=== PATIENT | female | born 1980 | race Caucasian/White ===

== ENCOUNTER 2017-10-11 20:33 | Emergency (ER) | payer OTHER ==
[2017-10-11 23:48] LABS: ADD MAN DIFF? NO
[2017-10-11 23:54] LABS: BASOPHILS % 0.6 % (0.0-2.0); EOSINOPHILS # 0.3 10^3/ul (0.0-0.5); EOSINOPHILS % 3.6 % (0.0-7.0); LYMPHOCYTES # 1.9 10^3/ul (0.8-2.9); LYMPHOCYTES % 27.2 % (15.0-51.0); MEAN CORPUSCULAR HEMOGLOBIN 27.1 pg (29.0-33.0); MEAN CORPUSCULAR HGB CONC 34.1 g/dl (32.0-37.0); MEAN CORPUSCULAR VOLUME 79.3 fl (82.0-101.0); MEAN PLATELET VOLUME 9.7 fl (7.4-10.4); MONOCYTE # 0.6 10^3/ul (0.3-0.9); MONOCYTES % 9.1 % (0.0-11.0); NEUTROPHIL # 4.1 10^3/ul (1.6-7.5); NEUTROPHILS % 59.2 % (39.0-77.0); PLATELET COUNT 320 10^3/UL (140-415); RED BLOOD COUNT 5.17 10^6/ul (4.20-5.40); RED CELL DISTRIBUTION WIDTH 14.3 % (11.5-14.5)
[2017-10-11 23:54] LABS: WHITE BLOOD COUNT 6.9 10^3/ul (4.8-10.8)
[2017-10-12 00:11] LABS: ADD UMIC YES; UR ASCORBIC ACID NEGATIVE (NEGATIVE); UR BILIRUBIN (Dip) NEGATIVE (NEGATIVE); UR BLOOD (Dip) 1+ mg/dL (NEGATIVE); UR CLARITY CLEAR (CLEAR); UR COLOR YELLOW (YELLOW); UR GLUCOSE (Dip) NEGATIVE (NEGATIVE); UR KETONES (Dip) NEGATIVE (NEGATIVE); UR LEUKOCYTE ESTERASE (Dip) 1+ Leu/ul (NEGATIVE); UR NITRITE (Dip) NEGATIVE (NEGATIVE); UR RBC 1 /HPF (0-5); UR SPECIFIC GRAVITY (Dip) 1.016 (1.003-1.030); UR SQUAMOUS EPITHELIAL CELL FEW /HPF (FEW); UR TOTAL PROTEIN (Dip) NEGATIVE (NEGATIVE); UR UROBILINOGEN (Dip) NEGATIVE (NEGATIVE); UR WBC 2 /HPF (0-5)
[2017-10-12 00:12] LABS: ALANINE AMINOTRANSFERASE 73 IU/L (13-69); ALBUMIN 4.4 g/dl (3.3-4.9); ALBUMIN/GLOBULIN RATIO 0.97; ALKALINE PHOSPHATASE 132 IU/L (42-121); ANION GAP 20 (8-16); ASPARTATE AMINO TRANSFERASE 55 IU/L (15-46); BILIRUBIN,INDIRECT 0.2 mg/dl (0-1.1); BILIRUBIN,TOTAL 0.2 mg/dl (0.2-1.3); BLOOD UREA NITROGEN 12 mg/dl (7-20); CALCIUM 10.6 mg/dl (8.4-10.2); CARBON DIOXIDE 24 mmol/L (21-31); CHLORIDE 103 mmol/L (97-110); CREATININE 0.89 mg/dl (0.44-1.00); GLUCOSE 105 mg/dl (70-220); LIPASE 137 U/L (23-300); POTASSIUM 3.7 mmol/L (3.5-5.1); SODIUM 143 mmol/L (135-144); TOTAL PROTEIN 8.9 g/dl (6.1-8.1)
== END 2017-10-12 03:18 | disposition home or self-care (01) ==
LOC: FTE 10-12 03:18
DX: O23.41 Unspecified infection of urinary tract in pregnancy, first trimester (principal); O99.89 Other specified diseases and conditions complicating pregnancy, childbirth and the puerperium; J45.909 Unspecified asthma, uncomplicated; R05 Cough; O99.511 Diseases of the respiratory system complicating pregnancy, first trimester; Z3A.01 Less than 8 weeks gestation of pregnancy
CPT/HCPCS: 36415; 76801; 76817; 80053; 81001; 83690; 84702; 85025; 86900; 86901; 99284-25

== ENCOUNTER 2017-10-25 20:14 | Emergency (ER) | payer SELFPAY, OTHER | END 2017-10-26 01:27 | disposition left against medical advice (07) | LOC: FTE 20:14 → E/R 10-26 01:27 | DX: Z53.21 Procedure and treatment not carried out due to patient leaving prior to being seen by health care provider (principal) ==

== ENCOUNTER 2017-12-01 19:44 | Emergency (ER) | payer SELFPAY, MEDICAID | END 2017-12-02 01:35 | disposition left against medical advice (07) | LOC: FTE 19:44 | DX: Z53.21 Procedure and treatment not carried out due to patient leaving prior to being seen by health care provider (principal) ==

== ENCOUNTER 2018-02-26 22:28 | Inpatient (IN) | payer OTHER ==
[2018-02-26 23:19] LABS: ADD UMIC YES; UR ASCORBIC ACID NEGATIVE (NEGATIVE); UR BACTERIA FEW /HPF (NONE SEEN); UR BILIRUBIN (Dip) NEGATIVE (NEGATIVE); UR BLOOD (Dip) NEGATIVE (NEGATIVE); UR CLARITY CLOUDY (CLEAR); UR COLOR YELLOW (YELLOW); UR GLUCOSE (Dip) NEGATIVE (NEGATIVE); UR KETONES (Dip) NEGATIVE (NEGATIVE); UR LEUKOCYTE ESTERASE (Dip) 3+ Leu/ul (NEGATIVE); UR NITRITE (Dip) NEGATIVE (NEGATIVE); UR RBC 27 /HPF (0-5); UR SQUAMOUS EPITHELIAL CELL MANY /HPF (FEW); UR TOTAL PROTEIN (Dip) NEGATIVE (NEGATIVE); UR UROBILINOGEN (Dip) NEGATIVE (NEGATIVE); UR WBC 9 /HPF (0-5)
[2018-02-27 00:09] LABS: ADD MAN DIFF? NO
[2018-02-27 00:15] LABS: BASOPHILS % 0.4 % (0.0-2.0); EOSINOPHILS # 0.2 10^3/ul (0.0-0.5); EOSINOPHILS % 2.9 % (0.0-7.0); HEMATOCRIT 33.8 % (37.0-47.0); HEMOGLOBIN 11.4 g/dl (12.0-16.0); LYMPHOCYTES # 1.6 10^3/ul (0.8-2.9); LYMPHOCYTES % 19.6 % (15.0-51.0); MEAN CORPUSCULAR HEMOGLOBIN 28.9 pg (29.0-33.0); MEAN CORPUSCULAR HGB CONC 33.7 g/dl (32.0-37.0); MEAN CORPUSCULAR VOLUME 85.8 fl (82.0-101.0); MEAN PLATELET VOLUME 10.3 fl (7.4-10.4); MONOCYTE # 0.6 10^3/ul (0.3-0.9); MONOCYTES % 7.6 % (0.0-11.0); NEUTROPHIL # 5.6 10^3/ul (1.6-7.5); NEUTROPHILS % 67.7 % (39.0-77.0); PLATELET COUNT 266 10^3/UL (140-415); RED BLOOD COUNT 3.94 10^6/ul (4.20-5.40); RED CELL DISTRIBUTION WIDTH 14.6 % (11.5-14.5)
[2018-02-27 00:15] LABS: WHITE BLOOD COUNT 8.3 10^3/ul (4.8-10.8)
[2018-02-27 00:34] LABS: ALANINE AMINOTRANSFERASE 30 IU/L (13-69); ALBUMIN 3.2 g/dl (3.3-4.9); ALBUMIN/GLOBULIN RATIO 0.91; ALKALINE PHOSPHATASE 102 IU/L (42-121); ANION GAP 11 (8-16); ASPARTATE AMINO TRANSFERASE 19 IU/L (15-46); BLOOD UREA NITROGEN 8 mg/dl (7-20); CALCIUM 9.9 mg/dl (8.4-10.2); CARBON DIOXIDE 26 mmol/L (21-31); CHLORIDE 108 mmol/L (97-110); GLUCOSE 116 mg/dl (70-220); POTASSIUM 4.1 mmol/L (3.5-5.1); SODIUM 141 mmol/L (135-144); TOTAL PROTEIN 6.7 g/dl (6.1-8.1)
[2018-02-27] MEDS: LACTATED RINGER'S 1,000 ML IV ×3 (02:32→18:31)
[2018-02-27] MEDS: NITROFURANTOIN (SR) 100 MG CAP PO ×2 (03:37→09:21)
[2018-02-27] MEDS: ACETAMINOPHEN 500 MG TAB PO ×2 (03:38→09:21)
[2018-02-27] MEDS: ACCU-CHEK XX ×4 (09:20→20:05)
[2018-02-27] MEDS: BUTORPHANOL 2 MG INJ IV (12:03)
[2018-02-27] MEDS ORDERED: GENTAMICIN IV PER PHARMACY XX (12:30)
[2018-02-27] MEDS: PRENATAL VITAMIN PO (13:42)
[2018-02-27] MEDS: morphine 2 MG INJ IV (13:42)
[2018-02-27] MEDS: FERROUS SULFATE (EC) 325 MG TAB PO (13:42)
[2018-02-27] MEDS: GENTAMICIN 120 MG/NS (PMX) 100 ML IVPB (14:02)
[2018-02-27] MEDS: GENTAMICIN 120 MG in SOD CHLORIDE 0.9% 100 ML IVPB (23:19)
[2018-02-28] MEDS: DIPHENHYDRAMINE 50 MG CAP PO ×2 (00:44→23:53)
[2018-02-28] MEDS: HYDROmorphONE 2 MG TAB PO ×6 (00:45→23:53)
[2018-02-28] MEDS: LACTATED RINGER'S 1,000 ML IV ×3 (03:46→20:07)
[2018-02-28] MEDS: GENTAMICIN 120 MG in SOD CHLORIDE 0.9% 100 ML IVPB (05:54)
[2018-02-28 06:22] LABS: GENTAMICIN,TROUGH 1.7 ug/ml (1.0-2.0)
[2018-02-28] MEDS: ACCU-CHEK XX ×4 (08:00→20:56)
[2018-02-28] MEDS: PRENATAL VITAMIN PO (08:42)
[2018-02-28] MEDS: FERROUS SULFATE (EC) 325 MG TAB PO (08:42)
[2018-02-28] MEDS: GENTAMICIN 80 MG/NS (PMX) 50 ML IVPB ×2 (15:48→23:53)
[2018-02-28] MEDS: ACETAMINOPHEN 500 MG TAB PO (19:54)
[2018-03-01] MEDS: LACTATED RINGER'S 1,000 ML IV ×4 (01:55→22:16)
[2018-03-01] MEDS: GENTAMICIN 80 MG/NS (PMX) 50 ML IVPB ×2 (07:58→16:02)
[2018-03-01] MEDS: ACCU-CHEK XX ×4 (08:10→20:49)
[2018-03-01] MEDS: PRENATAL VITAMIN PO (08:37)
[2018-03-01] MEDS: FERROUS SULFATE (EC) 325 MG TAB PO (08:37)
[2018-03-01] MEDS: HYDROmorphONE 2 MG TAB PO ×8 (08:46→23:48)
[2018-03-01 23:35] LABS: GENTAMICIN,TROUGH 1.5 ug/ml (1.0-2.0)
[2018-03-01] MEDS ORDERED: GENTAMICIN 80 MG/NS (PMX) 50 ML IVPB (23:45)
[2018-03-01] MEDS: DIPHENHYDRAMINE 50 MG CAP PO (23:48)
[2018-03-02] MEDS: GENTAMICIN 80 MG/NS (PMX) 50 ML IVPB ×3 (00:10→15:46)
[2018-03-02] MEDS: LACTATED RINGER'S 1,000 ML IV ×2 (06:58→15:10)
[2018-03-02] MEDS: ACCU-CHEK XX ×3 (07:57→14:29)
[2018-03-02] MEDS: PRENATAL VITAMIN PO (08:45)
[2018-03-02] MEDS: FERROUS SULFATE (EC) 325 MG TAB PO (08:45)
[2018-03-02 09:31] LABS: CREATININE 0.58 mg/dl (0.44-1.00)
[2018-03-02 09:31] LABS: BLOOD UREA NITROGEN 7 mg/dl (7-20)
== END 2018-03-02 18:32 | disposition home or self-care (01) | DRG 781 ==
LOC: OBT 22:28 → L-D 22:29 → PP1 02-27 03:02
DX: O99.89 Other specified diseases and conditions complicating pregnancy, childbirth and the puerperium (principal); N13.30 Unspecified hydronephrosis; Z3A.23 23 weeks gestation of pregnancy; O24.419 Gestational diabetes mellitus in pregnancy, unspecified control; J11.1 Influenza due to unidentified influenza virus with other respiratory manifestations
CPT/HCPCS: 74183; 76775; 76815; 76817; 80053; 80170; 81001; 82565; 82962; 84520; 85025; 86850; 86900; 86901; 87040; 87086

== ENCOUNTER 2018-05-11 20:53 | Outpatient (CLI) | payer OTHER ==
[2018-05-11 22:28] LABS: ADD UMIC YES; UR ASCORBIC ACID NEGATIVE (NEGATIVE); UR BACTERIA FEW /HPF (NONE SEEN); UR BILIRUBIN (Dip) NEGATIVE (NEGATIVE); UR BLOOD (Dip) NEGATIVE (NEGATIVE); UR CLARITY SLIGHTLY CLOUDY (CLEAR); UR COLOR YELLOW (YELLOW); UR GLUCOSE (Dip) NEGATIVE (NEGATIVE); UR KETONES (Dip) NEGATIVE (NEGATIVE); UR LEUKOCYTE ESTERASE (Dip) 1+ Leu/ul (NEGATIVE); UR NITRITE (Dip) NEGATIVE (NEGATIVE); UR RBC 3 /HPF (0-5); UR SPECIFIC GRAVITY (Dip) 1.017 (1.003-1.030); UR SQUAMOUS EPITHELIAL CELL FEW /HPF (FEW); UR TOTAL PROTEIN (Dip) NEGATIVE (NEGATIVE); UR UROBILINOGEN (Dip) NEGATIVE (NEGATIVE); UR WBC 6 /HPF (0-5)
[2018-05-11] MEDS: LACTATED RINGER'S 1,000 ML IV (22:28)
[2018-05-11] MEDS ORDERED: LACTATED RINGER'S 1,000 ML IV* (22:30)
== END 2018-05-11 23:31 | disposition home or self-care (01) ==
LOC: OBT 20:53 → L-D 20:53
DX: O62.9 Abnormality of forces of labor, unspecified (principal); Z3A.34 34 weeks gestation of pregnancy
CPT/HCPCS: 36415; 76817; 81001; 87086; 96360

== ENCOUNTER 2018-06-07 15:49 | Inpatient (IN) | payer OTHER ==
[2018-06-07] MEDS ORDERED: OXYTOCIN 30 UNITS/LR 500 ML IV (20:30)
[2018-06-07] MEDS ORDERED: CARBOPROST 250 MCG INJ IM (20:30)
[2018-06-07] MEDS ORDERED: MISOPROSTOL 200 MCG TAB PR (20:30)
[2018-06-07] MEDS ORDERED: ZOLPIDEM 5 MG TAB PO (21:00)
[2018-06-07] MEDS ORDERED: METOCLOPRAMIDE 10 MG INJ IV (21:00)
[2018-06-07] MEDS ORDERED: NALOXONE (0.4 MG/ML) INJ IV (21:00)
[2018-06-07] MEDS ORDERED: ALBUTEROL 0.083% (NEB) 2.5 MG/3 ML AMP HHN (21:00)
[2018-06-07] MEDS ORDERED: HYDROmorphONE 1 MG/5 ML IV SYRINGE IV ×2 (21:00)
[2018-06-07] MEDS ORDERED: ONDANSETRON 4 MG INJ IV (21:00)
[2018-06-07] MEDS ORDERED: HYDROmorphONE 0.5 MG/0.5 ML SYG IV (21:00)
[2018-06-07] MEDS ORDERED: FENTAnyl 50 MCG/ML VIAL IV ×2 (21:00)
[2018-06-07] MEDS: LACTATED RINGER'S 1,000 ML IV (21:04)
[2018-06-07] MEDS: DEXTROSE 5%-LR 1,000 ML IV (21:15)
[2018-06-07 21:38] LABS: ADD MAN DIFF? NO
[2018-06-07 21:40] LABS: WHITE BLOOD COUNT 8.2 10^3/ul (4.8-10.8)
[2018-06-07 21:40] LABS: BASOPHILS % 0.4 % (0.0-2.0); EOSINOPHILS # 0.2 10^3/ul (0.0-0.5); EOSINOPHILS % 2.2 % (0.0-7.0); HEMATOCRIT 37.9 % (37.0-47.0); HEMOGLOBIN 12.6 g/dl (12.0-16.0); LYMPHOCYTES # 1.7 10^3/ul (0.8-2.9); LYMPHOCYTES % 20.8 % (15.0-51.0); MEAN CORPUSCULAR HEMOGLOBIN 27.2 pg (29.0-33.0); MEAN CORPUSCULAR HGB CONC 33.2 g/dl (32.0-37.0); MEAN CORPUSCULAR VOLUME 81.7 fl (82.0-101.0); MEAN PLATELET VOLUME 11.7 fl (7.4-10.4); MONOCYTE # 0.6 10^3/ul (0.3-0.9); MONOCYTES % 6.7 % (0.0-11.0); NEUTROPHIL # 5.7 10^3/ul (1.6-7.5); NEUTROPHILS % 69.3 % (39.0-77.0); PLATELET COUNT 231 10^3/UL (140-415); RED BLOOD COUNT 4.64 10^6/ul (4.20-5.40); RED CELL DISTRIBUTION WIDTH 14.7 % (11.5-14.5)
[2018-06-07 22:00] LABS: INR 0.91; PROTIME 12.3 Sec (11.9-14.9)
[2018-06-07 22:01] LABS: PARTIAL THROMBOPLASTIN TIME 28.6 Sec (25.0-35.0)
[2018-06-07 22:31] LABS: HEPATITIS B SURFACE ANTIGEN NEGATIVE (NEGATIVE)
[2018-06-07] MEDS ORDERED: CLINDAMYCIN 900 MG/D5W (PMX) 50 ML IVPB (22:58)
[2018-06-07] MEDS ORDERED: morphine SULFATE/PF (10 MG/10 ML) INJ (23:09)
[2018-06-07] MEDS ORDERED: BUPIVACAINE 0.75%/DEXT (SPINAL) 2 ML INJ (23:09)
[2018-06-07] MEDS ORDERED: PHENYLephrine (100 MCG/ML) 5ML SYG ×2 (23:20→23:53)
[2018-06-07] MEDS ORDERED: OXYTOCIN 10 UNIT INJ (23:29)
[2018-06-07] MEDS: CLINDAMYCIN 900 MG/D5W (PMX) 50 ML IVPB (23:30)
[2018-06-08] MEDS ORDERED: FENTAnyl 50 MCG/ML VIAL (00:10)
[2018-06-08] MEDS ORDERED: PHENYLephrine (100 MCG/ML) 5ML SYG (00:10)
[2018-06-08] MEDS: GENTAMICIN 80 MG/NS (PMX) 50 ML IVPB (00:13)
[2018-06-08] MEDS: ONDANSETRON 4 MG INJ IV (00:53)
[2018-06-08] MEDS: FENTAnyl 50 MCG/ML VIAL IV (00:54)
[2018-06-08] MEDS: HYDROmorphONE 1 MG/5 ML IV SYRINGE IV (01:21)
[2018-06-08] MEDS: DIPHENHYDRAMINE 50 MG INJ IV ×4 (01:21→16:43)
[2018-06-08] MEDS: METHYLERGONOVINE 0.2 MG INJ IM (02:10)
[2018-06-08] MEDS: HYDROmorphONE 0.5 MG/0.5 ML SYG IV ×5 (03:01→19:40)
[2018-06-08] MEDS: OXYTOCIN 30 UNITS/LR 500 ML IV ×3 (03:06→10:30)
[2018-06-08] MEDS: LACTATED RINGER'S 1,000 ML IV ×3 (03:46→20:40)
[2018-06-08] MEDS ORDERED: METHYLERGONOVINE 0.2 MG INJ IM (04:00)
[2018-06-08] MEDS ORDERED: MISOPROSTOL 200 MCG TAB PR (04:00)
[2018-06-08] MEDS ORDERED: OXYTOCIN 30 UNITS/LR 500 ML IV (04:00)
[2018-06-08] MEDS ORDERED: CARBOPROST 250 MCG INJ IM (04:00)
[2018-06-08] MEDS: SENNA/DOCUSATE NA (8.6MG/50MG) TAB PO ×2 (10:25→20:41)
[2018-06-08] MEDS: LANOLIN 7 GM TUBE TOP (13:39)
[2018-06-08 17:16] LABS: RAPID PLASMA REAGIN NONREACTIVE (NR)
[2018-06-08] MEDS ORDERED: OXYCODONE/ACETAMINOPHEN (5/325) TAB PO (21:00)
[2018-06-08] MEDS: IBUPROFEN 800 MG TAB PO (22:00)
[2018-06-08] MEDS: OXYCODONE/ACETAMINOPHEN (5/325) TAB PO (23:42)
[2018-06-09] MEDS: LACTATED RINGER'S 1,000 ML IV ×3 (03:46→20:15)
[2018-06-09] MEDS: IBUPROFEN 800 MG TAB PO ×3 (06:34→23:00)
[2018-06-09 07:01] LABS: ADD MAN DIFF? NO
[2018-06-09 07:04] LABS: WHITE BLOOD COUNT 12.3 10^3/ul (4.8-10.8)
[2018-06-09 07:04] LABS: BASOPHILS % 0.2 % (0.0-2.0); EOSINOPHILS # 0.3 10^3/ul (0.0-0.5); EOSINOPHILS % 2.8 % (0.0-7.0); HEMATOCRIT 30.5 % (37.0-47.0); HEMOGLOBIN 10.3 g/dl (12.0-16.0); LYMPHOCYTES # 1.1 10^3/ul (0.8-2.9); LYMPHOCYTES % 8.9 % (15.0-51.0); MEAN CORPUSCULAR HEMOGLOBIN 27.8 pg (29.0-33.0); MEAN CORPUSCULAR HGB CONC 33.8 g/dl (32.0-37.0); MEAN CORPUSCULAR VOLUME 82.4 fl (82.0-101.0); MEAN PLATELET VOLUME 10.9 fl (7.4-10.4); MONOCYTE # 0.7 10^3/ul (0.3-0.9); MONOCYTES % 5.6 % (0.0-11.0); NEUTROPHILS % 81.6 % (39.0-77.0); PLATELET COUNT 197 10^3/UL (140-415); RED CELL DISTRIBUTION WIDTH 14.7 % (11.5-14.5)
[2018-06-09] MEDS: SENNA/DOCUSATE NA (8.6MG/50MG) TAB PO ×2 (08:57→20:25)
[2018-06-09] MEDS: OXYCODONE/ACETAMINOPHEN (5/325) TAB PO ×2 (12:54→20:26)
[2018-06-09] MEDS: FERROUS SULFATE (EC) 325 MG TAB PO ×2 (17:41→20:25)
[2018-06-10] MEDS: LACTATED RINGER'S 1,000 ML IV (03:46)
[2018-06-10] MEDS: IBUPROFEN 800 MG TAB PO ×2 (06:19→13:42)
[2018-06-10] MEDS: FERROUS SULFATE (EC) 325 MG TAB PO (08:44)
[2018-06-10] MEDS: SENNA/DOCUSATE NA (8.6MG/50MG) TAB PO (08:44)
[2018-06-10] MEDS: OXYCODONE/ACETAMINOPHEN (5/325) TAB PO ×2 (09:41→15:55)
[2018-06-10] MEDS: DIPHTH/TET/ACEL PERTUSS (ADULT) 0.5 ML VIAL IM* (12:24)
[2018-06-11] MEDS ORDERED: DIPHTH/TET/ACEL PERTUSS (ADULT) 0.5 ML VIAL IM* (09:00)
== END 2018-06-10 20:45 | disposition home or self-care (01) | DRG 765 ==
LOC: OBT 15:49 → L-D 06-08 00:47 → PP1 06-08 04:10 → OBT 19:51 → L-D 19:51
PROVIDERS: Obstetrics & Gynecology
PROC: 10D00Z1 Extraction of Products of Conception, Low, Open Approach (ICD-10-PCS; principal; 2018-06-08)
PROC: 3E0234Z Introduction of Serum, Toxoid and Vaccine into Muscle, Percutaneous Approach (ICD-10-PCS; 2018-06-10)
DX: O34.219 Maternal care for unspecified type scar from previous cesarean delivery (principal); Z68.41 Body mass index [BMI] 40.0-44.9, adult; O99.214 Obesity complicating childbirth; E66.01 Morbid (severe) obesity due to excess calories; O24.429 Gestational diabetes mellitus in childbirth, unspecified control; Z3A.38 38 weeks gestation of pregnancy; Z37.0 Single live birth; Z23 Encounter for immunization
CPT/HCPCS: 76818; 82962; 85025; 85610; 85730; 86592; 86850; 86900; 86901; 87340; 90715; 99464

== ENCOUNTER 2018-06-20 04:28 | Inpatient (IN) | payer OTHER ==
[2018-06-20] MEDS ORDERED: DOCUSATE SODIUM 100 MG CAP PO (06:30)
[2018-06-20] MEDS: ACETAMINOPHEN 325 MG TAB PO (08:12)
[2018-06-20] MEDS: PRENATAL VITAMIN PO (09:05)
[2018-06-20] MEDS: CLINDAMYCIN 900 MG/D5W (PMX) 50 ML IVPB ×4 (09:35→22:10)
[2018-06-20] MEDS: GENTAMICIN 80 MG/NS (PMX) 50 ML IVPB ×3 (10:18→23:02)
[2018-06-20] MEDS: morphine 2 MG INJ IV ×4 (10:37→22:10)
[2018-06-21] MEDS: morphine 2 MG INJ IV ×5 (03:08→22:49)
[2018-06-21] MEDS: CLINDAMYCIN 900 MG/D5W (PMX) 50 ML IVPB ×3 (05:26→21:34)
[2018-06-21] MEDS: GENTAMICIN 80 MG/NS (PMX) 50 ML IVPB ×2 (06:57→15:07)
[2018-06-21] MEDS: PRENATAL VITAMIN PO (09:22)
[2018-06-21] MEDS: GENTAMICIN IVPB ×2 (15:08→22:49)
[2018-06-21] MEDS: SOD CHLORIDE 0.9% IVPB ×2 (15:08→22:49)
[2018-06-22] MEDS: morphine 2 MG INJ IV ×4 (04:24→19:49)
[2018-06-22] MEDS: CLINDAMYCIN 900 MG/D5W (PMX) 50 ML IVPB ×2 (05:53→14:17)
[2018-06-22] MEDS: GENTAMICIN IVPB ×2 (06:59→14:52)
[2018-06-22] MEDS: SOD CHLORIDE 0.9% IVPB ×2 (06:59→14:52)
[2018-06-22 07:11] LABS: CREATININE 1.21 mg/dl (0.44-1.00)
[2018-06-22 07:11] LABS: BLOOD UREA NITROGEN 23 mg/dl (7-20)
[2018-06-22] MEDS: PRENATAL VITAMIN PO (08:34)
[2018-06-22] MEDS ORDERED: VANCOMYCIN IV PER PHARMACY XX (21:30)
[2018-06-22] MEDS: GENTAMICIN TROUGH & PEAK XX (22:00)
[2018-06-22] MEDS: VANCOMYCIN 1.5 GM in SOD CHLORIDE 0.9% 250 ML IVPB (22:09)
[2018-06-23] MEDS: morphine 2 MG INJ IV ×4 (00:14→14:45)
[2018-06-23] MEDS: PRENATAL VITAMIN PO (08:44)
[2018-06-23] MEDS: VANCOMYCIN 1.25 GM in SOD CHLORIDE 0.9% 250 ML IVPB (10:51)
== END 2018-06-23 17:15 | disposition home or self-care (01) | DRG 776 ==
LOC: 2NE 04:28
PROVIDERS: Obstetrics & Gynecology
DX: O86.0 Infection of obstetric surgical wound (principal)
CPT/HCPCS: 82565; 84520; 87070; 87081

== ENCOUNTER 2018-07-19 22:02 | Emergency (ER) | payer OTHER ==
[2018-07-19] MEDS: DIPHENHYDRAMINE 50 MG INJ IM (22:57)
[2018-07-19] MEDS: EPINEPHrine 1 MG INJ SC (22:58)
[2018-07-19] MEDS: FAMOTIDINE 20 MG TAB PO (22:58)
[2018-07-19] MEDS: METHYLPREDNISOLONE 125 MG INJ IM (22:58)
== END 2018-07-20 01:35 | disposition left against medical advice (07) ==
LOC: FTE 07-20 01:35
DX: L29.9 Pruritus, unspecified (principal); R06.02 Shortness of breath; J45.909 Unspecified asthma, uncomplicated
CPT/HCPCS: 96372; 99284-25

== ENCOUNTER 2018-10-02 20:30 | Emergency (ER) | payer OTHER ==
[2018-10-02] MEDS: IBUPROFEN 600 MG TAB PO (23:48)
[2018-10-02 23:54] LABS: ADD MAN DIFF? NO
[2018-10-02 23:55] LABS: BASOPHILS % 0.3 % (0.0-2.0); EOSINOPHILS # 0.3 10^3/ul (0.0-0.5); EOSINOPHILS % 4.7 % (0.0-7.0); HEMATOCRIT 41.3 % (37.0-47.0); HEMOGLOBIN 13.3 g/dl (12.0-16.0); LYMPHOCYTES # 2.3 10^3/ul (0.8-2.9); LYMPHOCYTES % 34.2 % (15.0-51.0); MEAN CORPUSCULAR HGB CONC 32.2 g/dl (32.0-37.0); MEAN CORPUSCULAR VOLUME 77.8 fl (82.0-101.0); MEAN PLATELET VOLUME 10.1 fl (7.4-10.4); MONOCYTE # 0.6 10^3/ul (0.3-0.9); MONOCYTES % 8.7 % (0.0-11.0); NEUTROPHIL # 3.5 10^3/ul (1.6-7.5); NEUTROPHILS % 51.9 % (39.0-77.0); PLATELET COUNT 362 10^3/UL (140-415); RED BLOOD COUNT 5.31 10^6/ul (4.20-5.40); RED CELL DISTRIBUTION WIDTH 14.6 % (11.5-14.5)
[2018-10-02 23:55] LABS: WHITE BLOOD COUNT 6.6 10^3/ul (4.8-10.8)
[2018-10-03 00:15] LABS: ADD UMIC YES; UR ASCORBIC ACID NEGATIVE (NEGATIVE); UR BACTERIA MODERATE /HPF (NONE SEEN); UR BILIRUBIN (Dip) NEGATIVE (NEGATIVE); UR BLOOD (Dip) 1+ mg/dL (NEGATIVE); UR CLARITY CLOUDY (CLEAR); UR COLOR YELLOW (YELLOW); UR GLUCOSE (Dip) NEGATIVE (NEGATIVE); UR KETONES (Dip) NEGATIVE (NEGATIVE); UR LEUKOCYTE ESTERASE (Dip) 3+ Leu/ul (NEGATIVE); UR MUCUS FEW /HPF (NONE SEEN); UR NITRITE (Dip) NEGATIVE (NEGATIVE); UR RBC 12 /HPF (0-5); UR SQUAMOUS EPITHELIAL CELL MODERATE /HPF (FEW); UR TOTAL PROTEIN (Dip) NEGATIVE (NEGATIVE); UR UROBILINOGEN (Dip) NEGATIVE (NEGATIVE); UR WBC 14 /HPF (0-5)
[2018-10-03 00:17] LABS: ALANINE AMINOTRANSFERASE 20 IU/L (13-69); ALBUMIN 4.1 g/dl (3.3-4.9); ALBUMIN/GLOBULIN RATIO 1.07; ALKALINE PHOSPHATASE 110 IU/L (42-121); ANION GAP 12 (5-13); ASPARTATE AMINO TRANSFERASE 19 IU/L (15-46); BILIRUBIN,INDIRECT 0.1 mg/dl (0-1.1); BILIRUBIN,TOTAL 0.1 mg/dl (0.2-1.3); BLOOD UREA NITROGEN 18 mg/dl (7-20); CALCIUM 9.6 mg/dl (8.4-10.2); CARBON DIOXIDE 25 mmol/L (21-31); CHLORIDE 104 mmol/L (97-110); Estimated GFR > 60 mL/min (>60); GLUCOSE 89 mg/dl (70-220); SODIUM 141 mmol/L (135-144); TOTAL PROTEIN 7.9 g/dl (6.1-8.1)
[2018-10-03] MEDS: IOHEXOL 300MG/ML 150 ML BTL (00:43)
[2018-10-03] MEDS: SOD CHLORIDE 0.9% 100 ML (00:43)
[2018-10-03] MEDS: GENTAMICIN 360 MG in SOD CHLORIDE 0.9% 100 ML IVPB (01:37)
[2018-10-03] MEDS: ACETAMINOPHEN 500 MG TAB PO (01:38)
== END 2018-10-03 03:15 | disposition home or self-care (01) ==
LOC: FTE 20:30
DX: N30.01 Acute cystitis with hematuria (principal); J45.909 Unspecified asthma, uncomplicated; R40.2412 Glasgow coma scale score 13-15, at arrival to emergency department
CPT/HCPCS: 36415; 74177; 80053; 81001; 85025; 87086; 96374; 99285-25

== ENCOUNTER 2019-01-27 20:47 | Emergency (ER) | payer OTHER | END 2019-01-27 22:50 | disposition left against medical advice (07) | LOC: FTE 22:50 | DX: R20.0 Anesthesia of skin (principal); J45.909 Unspecified asthma, uncomplicated | CPT/HCPCS: 93005; 99283-25 ==

== ENCOUNTER 2019-05-19 20:27 | Emergency (ER) | payer OTHER ==
[2019-05-20] MEDS: morphine 4 MG/ML VIAL IV ×2 (02:27→04:44)
[2019-05-20] MEDS: SOD CHLORIDE 0.9% 500 ML IV (02:27)
[2019-05-20] MEDS: ONDANSETRON 4 MG INJ IV (02:27)
[2019-05-20 02:28] LABS: URINE BLOOD (Dip) POC 2+ (NEGATIVE); URINE GLUCOSE (Dip) POC Negative (NEGATIVE); URINE KETONES (Dip) POC Negative (NEGATIVE); URINE LEUKOCYTE EST (Dip) POC Negative (NEGATIVE); URINE NITRITE (Dip) POC Negative (NEGATIVE); URINE TOTAL PROTEIN POC Trace (NEGATIVE)
[2019-05-20 02:28] LABS: URINE PH (Dip) POC 5.5 (5.0-8.5)
[2019-05-20 02:35] LABS: ADD MAN DIFF? NO
[2019-05-20 02:37] LABS: WHITE BLOOD COUNT 6.9 10^3/ul (4.8-10.8)
[2019-05-20 02:37] LABS: BASOPHIL # 0.1 10^3/ul (0.0-0.1); BASOPHILS % 0.7 % (0.0-2.0); EOSINOPHILS # 0.4 10^3/ul (0.0-0.5); EOSINOPHILS % 5.5 % (0.0-7.0); HEMATOCRIT 43.7 % (37.0-47.0); HEMOGLOBIN 14.4 g/dl (12.0-16.0); LYMPHOCYTES # 2.6 10^3/ul (0.8-2.9); LYMPHOCYTES % 37.4 % (15.0-51.0); MEAN CORPUSCULAR HEMOGLOBIN 27.3 pg (29.0-33.0); MEAN CORPUSCULAR VOLUME 82.8 fl (82.0-101.0); MONOCYTE # 0.6 10^3/ul (0.3-0.9); NEUTROPHIL # 3.3 10^3/ul (1.6-7.5); NEUTROPHILS % 48.1 % (39.0-77.0); PLATELET COUNT 331 10^3/UL (140-415); RED BLOOD COUNT 5.28 10^6/ul (4.20-5.40)
[2019-05-20 02:58] LABS: ALANINE AMINOTRANSFERASE 66 IU/L (13-69); ALBUMIN 4.5 g/dl (3.3-4.9); ALBUMIN/GLOBULIN RATIO 1.12; ALKALINE PHOSPHATASE 144 IU/L (42-121); ANION GAP 10 (5-13); ASPARTATE AMINO TRANSFERASE 41 IU/L (15-46); BILIRUBIN,INDIRECT 0.3 mg/dl (0-1.1); BILIRUBIN,TOTAL 0.3 mg/dl (0.2-1.3); BLOOD UREA NITROGEN 14 mg/dl (7-20); CALCIUM 9.8 mg/dl (8.4-10.2); CARBON DIOXIDE 25 mmol/L (21-31); CHLORIDE 110 mmol/L (97-110); CREATININE 0.95 mg/dl (0.44-1.00); Estimated GFR > 60 mL/min (>60); GLUCOSE 99 mg/dl (70-220); LIPASE 133 U/L (23-300); POTASSIUM 4.1 mmol/L (3.5-5.1); SODIUM 145 mmol/L (135-144); TOTAL PROTEIN 8.5 g/dl (6.1-8.1)
[2019-05-20 02:59] LABS: ADD UMIC YES; UR ASCORBIC ACID NEGATIVE (NEGATIVE); UR BACTERIA FEW /HPF (NONE SEEN); UR BILIRUBIN (Dip) NEGATIVE (NEGATIVE); UR BLOOD (Dip) 2+ mg/dL (NEGATIVE); UR CLARITY SLIGHTLY CLOUDY (CLEAR); UR COLOR YELLOW (YELLOW); UR GLUCOSE (Dip) NEGATIVE (NEGATIVE); UR KETONES (Dip) NEGATIVE (NEGATIVE); UR LEUKOCYTE ESTERASE (Dip) NEGATIVE Leu/ul (NEGATIVE); UR NITRITE (Dip) NEGATIVE (NEGATIVE); UR RBC 4 /HPF (0-5); UR SPECIFIC GRAVITY (Dip) 1.018 (1.003-1.030); UR SQUAMOUS EPITHELIAL CELL FEW /HPF (FEW); UR TOTAL PROTEIN (Dip) NEGATIVE (NEGATIVE); UR UROBILINOGEN (Dip) NEGATIVE (NEGATIVE); UR WBC 5 /HPF (0-5)
== END 2019-05-20 07:21 | disposition home or self-care (01) ==
LOC: E/R 20:27
DX: R10.9 Unspecified abdominal pain (principal); J45.909 Unspecified asthma, uncomplicated; R11.0 Nausea
CPT/HCPCS: 36415; 71045; 74176; 80053; 81001; 81003; 83690; 84703; 85025; 96374; 96375; 96376; 99285-25